=== PATIENT | male | born 1940 | race Caucasian/White ===

== ENCOUNTER 2018-03-15 05:55 | Day surgery (SDC) | payer MEDICARE ==
[~2018-03-15 05:55] MED LIST: MARCAINE 0.5% INFILTRATI ONE
[2018-03-15] MEDS ORDERED: ANCEF/STERILE WATER 2 GM/20 ML 2 GM/20 ML SYRINGE IV NR (06:00)
[2018-03-15] MEDS ORDERED: NACL 0.9% 1000 ML 1,000 ML IV SCH (06:00)
[2018-03-15] MEDS ORDERED: VERSED IV NR (06:00)
[2018-03-15] MEDS ORDERED: XYLOCAINE 1%/ EPI 1:100,000 INFILTRATI ONE (07:02)
[2018-03-15] MEDS ORDERED: NACL 0.9% 250ML 250 ML ONE ×2 (07:02→07:56)
[2018-03-15] MEDS ORDERED: MARCAINE 0.5% INFILTRATI ONE ×2 (07:02→09:59)
[2018-03-15] MEDS ORDERED: HEPARIN 10,000 UNITS/10 ML ONE (07:02)
[2018-03-15 07:03] LABS: Hematocrit 31.9 % (35.5-45.6); Hemoglobin 10.9 gm/dl (11.8-15.2); Mean Corpuscular HGB Conc 34 % (32-34); Mean Corpuscular Hemoglobin 30 pg (28-32); Mean Corpuscular Volume 87 fl (84-94); Platelet Count 190 K/mm3 (140-440); Red Blood Count 3.68 M/mm3 (3.65-5.03); Red Cell Distribution Width 14.2 % (13.2-15.2)
[2018-03-15] MEDS ORDERED: SODIUM BICARBONATE ONE ×2 (07:03→10:43)
[2018-03-15] MEDS ORDERED: RIFADIN ONE (07:03)
[2018-03-15] MEDS ORDERED: NACL 0.9% 500 ML 0 ML ONE (07:03)
--- NOTE | 2018-03-15 07:13 | Anesthesia Day of Surgery ---
Anesthesia Day of Surgery - Day of Surgery Patient Examined: Yes Patient H&P Reviewed: Yes Patient is NPO: Yes
--- NOTE | 2018-03-15 07:13 | Anesthesia Consultation ---
Anesthesia Consult and Med Hx Date of service: 03/15/18 - Airway Anesthetic Teeth Evaluation: Dentures ROM Head & Neck: Adequate Mental/Hyoid Distance: Adequate Mallampati Class: Class III Intubation Access Assessment: Probably Good - Pulmonary Exam CTA: Yes - Cardiac Exam Cardiac Exam: RRR - Pre-Operative Health Status ASA Pre-Surgery Classification: ASA3 Proposed Anesthetic Plan: General - Pulmonary Hx Smoking: No - Cardiovascular System Hx Hypertension: Yes (took Coreg and clonidine today) - Central Nervous System Hx Psychiatric Problems: No - Gastrointestinal Hx Ulcer: No Hx Gastroesophageal Reflux Disease: No - Endocrine Hx Renal Disease: Yes - Hematic Hx Anemia: Yes - Other Systems Hx Alcohol Use: Yes (occas) Hx Substance Use: No Hx Cancer: Yes (colon cancer 2005)
[2018-03-15 07:15] LABS: Calcium 9.1 mg/dL (8.4-10.2)
[2018-03-15] MEDS ORDERED: ROBINUL IV NR (07:30)
[2018-03-15] MEDS ORDERED: PEPCID IV NR (07:30)
[2018-03-15] MEDS ORDERED: ZOFRAN IV PRN (07:30)
[2018-03-15] MEDS ORDERED: DIPRIVAN 10 MG/ML IV ONE (08:07)
[2018-03-15] MEDS ORDERED: SUBLIMAZE ONE (08:07)
[2018-03-15 08:16] LABS: Basophils % (Manual) 0 % (0.0-1.8); Total Cells Counted 100
[2018-03-15 08:17] LABS: RBC Morphology Normal
[2018-03-15] MEDS ORDERED: XYLOCAINE MPF 0.5% INFILTRATI ONE (09:10)
[2018-03-15] MEDS ORDERED: NEO SYNEPHRINE/NS Syringe(OR USE) IV ONE (09:10)
[2018-03-15] MEDS ORDERED: NEO SYNEPHRINE ONE (09:11)
[2018-03-15] MEDS ORDERED: NACL 0.9% 100 ML ONE (09:11)
[2018-03-15] MEDS ORDERED: ROBINUL ONE (09:11)
[2018-03-15] MEDS ORDERED: ZOFRAN ONE (09:11)
[2018-03-15] MEDS ORDERED: NACL 0.9% 500 ML IV ONE (09:12)
[2018-03-15] MEDS ORDERED: HEPARIN 10,000 UNITS/10 ML IV ONE (09:12)
--- NOTE | 2018-03-15 10:28 | Operative Report ---
Operative Report Operative Report: Date of procedure:03/15/2018 Pre-operative diagnosis: End-stage renal disease in need of hemodialysis access Post-operative diagnosis: Same Procedure name(s): Patient of left brachial artery to cephalic vein hemodialysis fistula Surgeon: Robert Haley MD Pharmacy Manager: None Anesthesia: Gen. EBL: Minimal Specimen(s): None Complications: None Findings: Good caliber/quality cephalic vein and brachial artery. Excellent thrill and bruit and fistula post anastomosis. Adequate perfusion to the left hand postanastomosis. Procedure: With the left arm extended the entire extremity was then prepped and draped using standard sterile technique. . I then made a transverse incision overlying the confluence of the median cephalic and the basilic veins in the volar aspect of proximal forearm and carried into the subcutaneous tissue. The [median] cephalic vein was identified and mobilized. Multiple side branches were ligated but the vessel was considered adequate for fistula creation. Once the vein was completely mobilized and marked for rotation I then mobilized distal brachial artery with Vesseloops. The vessel was then controlled[ using a combination of vessel loops and] DeBakey clamps and a longitudinal arteriotomy was then made over the extreme distal brachial artery. The distal end of the transected vein was then opened and an end-to-side anastomosis was then created between the 2 vessels using 6-0 Prolene suture in running technique. Prior to completion of the suture line antegrade and retrograde flushing was performed. The suture line was then completed and flow was reestablished initially into the fistula and subsequently released of the distal forearm vessels. A strong Doppler signal was noted over both the radial and ulnar arteries which was unchanged from preop Soft thrill and bruit was felt in the fistula. Hemostasis was obtained using Surgicel. The incision was then blocked with Marcaine 0.5% plain and then closed in layers using 3-0 Vicryl subcutaneous 4-0 Monocryl subcuticular. Skin was then sealed with Dermabond and the patient was then returned to the supine position and then to the recovery in stable condition having tolerated the procedure well. Sponge and needle counts were correct..
--- NOTE | 2018-03-15 10:36 | Short Stay Summary ---
Short Stay Documentation Narrative H&P: Admitted to the operative suite for outpatient creation of an AV fistula and his left arm - History H&P: obtained from office - Allergies and Medications Current Medications: Allergies No Known Allergies Allergy (Unverified 03/14/18 11:06) Home Medications Medication Instructions Recorded Confirmed Last Taken Type Calcitriol [Rocaltrol] 0.25 mg PO DAILY 03/14/18 03/15/18 03/14/18 09:00 History Carvedilol [Coreg] 12.5 mg PO BID 03/14/18 03/15/18 03/14/18 04:00 History Doxazosin [Cardura] 2 mg PO BID 03/14/18 03/15/18 03/15/18 04:00 History Ferrous Sulfate [Feosol 325 MG tab] 1 tab PO DAILY 03/14/18 03/15/18 03/14/18 09 :00 History Sodium Bicarbonate 2 tab PO BID 03/14/18 03/14/18 Unknown History Tamsulosin [Flomax] 0.4 mg PO BID 03/14/18 03/15/18 03/14/18 09:00 History amLODIPine [Norvasc] 10 mg PO DAILY 03/14/18 03/15/18 03/14/18 04:00 History cloNIDine [Catapres] 0.01 mg PO BID 03/14/18 03/15/18 03/14/18 04:00 History Active Medications Famotidine (Pepcid) 20 mg IV PREOP NR Stop: 03/15/18 12:00 Last Admin: 03/15/18 07:31 Dose: 20 mg Glycopyrrolate (Robinul) 0.1 mg IV PREOP NR Stop: 03/15/18 12:00 Last Admin: 03/15/18 07:57 Dose: 0.1 mg Cefazolin Sodium (Ancef/Sterile Water 2 Gm/20 Ml) 2 gm in 20 mls @ 80 mls/hr IV PREOP NR; Protocol Stop: 03/15/18 23:00 Sodium Chloride (Nacl 0.9% 1000 Ml) 1,000 mls @ 42 mls/hr IV DIRECT VIPIN Last Admin: 03/15/18 07:00 Dose: 42 mls/hr Midazolam HCl (Versed) 2 mg IV PREOP NR Stop: 03/15/18 23:59 Last Admin: 03/15/18 07:15 Dose: 2 mg Ondansetron HCl (Zofran) 4 mg IV ONCE PRN PRN Reason: Nausea And Vomiting Stop: 03/15/18 12:00 - Brief post op/procedure progress note Date of procedure: 03/15/18 Procedure: Pre-operative diagnosis: End-stage renal disease in need of hemodialysis access Post-operative diagnosis: Same Procedure name(s): Patient of left brachial artery to cephalic vein hemodialysis fistula Surgeon: Robert Haley MD Toll Line Mechanic: None Anesthesia: Gen. EBL: Minimal Specimen(s): None Complications: None Findings: Good caliber/quality cephalic vein and brachial artery. Excellent thrill and bruit and fistula post anastomosis. Adequate perfusion to the left hand postanastomosis. Procedure: With the left arm extended the entire extremity was then prepped and draped using standard sterile technique. . I then made a transverse incision overlying the confluence of the median cephalic and the basilic veins in the volar aspect of proximal forearm and carried into the subcutaneous tissue. The [median] cephalic vein was identified and mobilized. Multiple side branches were ligated but the vessel was considered adequate for fistula creation. Once the vein was completely mobilized and marked for rotation I then mobilized distal brachial artery with Vesseloops. The vessel was then controlled[ using a combination of vessel loops and] DeBakey clamps and a longitudinal arteriotomy was then made over the extreme distal brachial artery. The distal end of the transected vein was then opened and an end-to-side anastomosis was then created between the 2 vessels using 6-0 Prolene suture in running technique. Prior to completion of the suture line antegrade and retrograde flushing was performed. The suture line was then completed and flow was reestablished initially into the fistula and subsequently released of the distal forearm vessels. A strong Doppler signal was noted over both the radial and ulnar arteries which was unchanged from preop Soft thrill and bruit was felt in the fistula. Hemostasis was obtained using Surgicel. The incision was then blocked with Marcaine 0.5% plain and then closed in layers using 3-0 Vicryl subcutaneous 4-0 Monocryl subcuticular. Skin was then sealed with Dermabond and the patient was then returned to the supine position and then to the recovery in stable condition having tolerated the procedure well. Sponge and needle counts were correct.. - Hospital course Hospital course: Benign - Disposition Condition at discharge: Stable Disposition: DC- TO HOME OR SELFCARE - Discharge Diagnoses (1) End stage chronic kidney disease Status: Chronic (2) Hypertensive chronic kidney disease with stage 1 through stage 4 chronic kidney disease, or unspecified chronic kidney disease Status: Chronic Short Stay Discharge Plan Activity: advance as tolerated Weight Bearing Status: Weight Bear as Tolerated Diet: renal Wound: keep clean and dry Special Instructions: no heavy lifting Follow up with: HARMONY GUTHRIE MD [Primary Care Provider] - 7 Days GLENNA ALEGRIA MD [Staff Physician] - 7 Days Prescriptions: HYDROcodone/ACETAMINOPHEN [[place] 5-325 Tablet] 1 each PO Q4HR PRN #20 tablet PRN Reason: Pain
--- NOTE | 2018-03-15 10:49 | Post Anesthesia Evaluation ---
- Post Anesthesia Evaluation Patient Participated: Yes Airway Patent: Yes Stable Respiratory Function: Yes Nausea/Vomiting: No Temp > 96.8F: Yes Pain Manageable: Yes Adequeate Hydration: Yes Anesthesia Complications: No
[2018-03-15] MEDS ORDERED: DILAUDID IV PRN (11:00)
[2018-03-15 11:59] VITALS: BP 146/83
== END 2018-03-15 11:55 | disposition home or self-care (01) ==
LOC: OR 05:55
PROVIDERS: ATTEND Surgery Vascular Surgery
DX: I12.0 Hypertensive chronic kidney disease with stage 5 chronic kidney disease or end stage renal disease (principal); N18.6 End stage renal disease; Z85.038 Personal history of other malignant neoplasm of large intestine
CPT/HCPCS: 36415; 36821; 80048; 85007; 85025; J0690; J1644; J2250; J2370; J2405; J2704; J3010; J7030; J7040; J7050; J3490

== ENCOUNTER 2020-11-13 07:12 | Emergency (ER) | payer MEDICARE ==
[2020-11-13 07:58] VITALS: BP 103/56
--- NOTE | 2020-11-13 10:15 | Emergency Department Report ---
- General Chief complaint: Weakness Stated complaint: HYPOTENSIVE,DIALYSIS Time Seen by Provider: 11/13/20 09:50 Source: patient Mode of arrival: Ambulatory Limitations: No Limitations - History of Present Illness Initial comments: Chief complaint: "I have had the stomach flu since . I Almost passed out at dialysis." HPI this is a 80-year-old male with history of end-stage renal disease on hemodialysis Tuesday, hypertension who presents with near synco pe and diarrhea. Since the day after , patient has had copious amount of diarrhea. He feels as if he has lost too much fluid. He denies any abdominal pain. He had more diarrhea on today. No recent use of antibiotics. Because hemodialysis session occurred on Tuesday. Today when standing on the scale at dialysis, he just went down to the floor without complete loss of consciousness. Patient feels comfortable seated at rest. MD Complaint: generalized weakness -: Gradual Location: generalized Severity: mild Consistency: constant Improves with: none Worsens with: none Context: recent illness (Diarrhea for the past 5 days) Associated Symptoms: other (Diarrhea) - Related Data Home Medications Medication Instructions Recorded Confirmed Last Taken Doxazosin [Cardura] 2 mg PO BID 03/14/18 03/15/18 03/15/18 04:00 Ferrous Sulfate [Feosol 325 MG tab] 1 tab PO DAILY 03/14/18 03/15/18 03/14/18 09:00 Sodium Bicarbonate 2 tab PO BID 03/14/18 03/14/18 Unknown Tamsulosin [Flomax] 0.4 mg PO BID 03/14/18 03/15/18 03/14/18 09:00 amLODIPine 10 mg PO DAILY 03/14/18 03/15/18 03/14/18 04:00 calcitrioL [Rocaltrol] 0.25 mg PO DAILY 03/14/18 03/15/18 03/14/18 09:00 carvediloL [Coreg] 12.5 mg PO BID 03/14/18 03/15/18 03/14/18 04:00 cloNIDine [Catapres] 0.01 mg PO BID 03/14/18 03/15/18 03/14/18 04:00 Previous Rx's Medication Instructions Recorded Last Taken Type HYDROcodone/ACETAMINOPHEN [[place] 1 each PO Q4HR PRN #20 tablet 03/15/18 Unknown Rx 5-325 Tablet] Loperamide [Imodium] 2 mg PO QID 2 Days #8 capsule 11/13/20 Unknown Rx Allergies Allergy/AdvReac Type Severity Reaction Status Date / Time No Known Allergies Allergy Verified 11/13/20 07:55 ED Review of Systems ROS: Stated complaint: HYPOTENSIVE,DIALYSIS Other details as noted in HPI Comment: All other systems reviewed and negative Constitutional: malaise ED Past Medical Hx - Past Medical History Hx Hypertension: Yes (took Coreg and clonidine today) Hx Renal Disease: Yes - Social History Smoking Status: Never Smoker - Medications Home Medications: Home Medications Medication Instructions Recorded Confirmed Last Taken Type Doxazosin [Cardura] 2 mg PO BID 03/14/18 03/15/18 03/15/18 04:00 History Ferrous Sulfate [Feosol 325 MG tab] 1 tab PO DAILY 03/14/18 03/15/18 03/14/18 09:00 History Sodium Bicarbonate 2 tab PO BID 03/14/18 03/14/18 Unknown History Tamsulosin [Flomax] 0.4 mg PO BID 03/14/18 03/15/18 03/14/18 09:00 History amLODIPine 10 mg PO DAILY 03/14/18 03/15/18 03/14/18 04:00 History calcitrioL [Rocaltrol] 0.25 mg PO DAILY 03/14/18 03/15/18 03/14/18 09:00 History carvediloL [Coreg] 12.5 mg PO BID 03/14/18 03/15/18 03/14/18 04:00 History cloNIDine [Catapres] 0.01 mg PO BID 03/14/18 03/15/18 03/14/18 04:00 History HYDROcodone/ACETAMINOPHEN [[place] 1 each PO Q4HR PRN #20 tablet 03/15/18 Unknown Rx 5-325 Tablet] Loperamide [Imodium] 2 mg PO QID 2 Days #8 capsule 11/13/20 Unknown Rx ED Physical Exam - General Limitations: No Limitations ED Course Vital Signs 11/13/20 07:56 Temperature 97.8 F Pulse Rate 89 Respiratory 18 Rate Blood Pressure 103/56 O2 Sat by Pulse 99 Oximetry ED Medical Decision Making - Lab Data Result diagrams: 11/13/20 10:14 12/31/20 10:14 - Medical Decision Making This is a 80-year-old male with end-stage renal disease who has had diarrhea for the past 5 days. He presents with orthostasis. Chemistry reveals dehydration with hyponatremia hypochloremia due to GI losses. Patient was treated with IV fluid therapy. He felt much improved. I prescribed Imodium he is discharged home he will receive dialysis on Tuesday. Critical care attestation.: If time is entered above; I have spent that time in minutes in the direct care of this critically ill patient, excluding procedure time. ED Disposition Clinical Impression: End stage chronic kidney disease, Dehydration, Orthostasis Disposition: DC- TO HOME OR SELFCARE Is pt being admited?: No Does the pt Need Aspirin: No Condition: Stable Instructions: Dehydration, Adult, [id number] Prescriptions: Loperamide [Imodium] 2 mg PO QID 2 Days #8 capsule
[2020-11-13 10:26] LABS: Hematocrit 31.6 % (35.5-45.6); Hemoglobin 10.7 gm/dl (11.8-15.2); Mean Corpuscular HGB Conc 34 % (32-34); Mean Corpuscular Volume 91 fl (84-94); Platelet Count 243 K/mm3 (140-440); Red Blood Count 3.47 M/mm3 (3.65-5.03); Red Cell Distribution Width 13.5 % (13.2-15.2)
[2020-11-13 10:46] LABS: Calcium 9.5 mg/dL (8.4-10.2)
[2020-11-13] MEDS ORDERED: SODIUM CHLORIDE 0.9% 500 ML 500 ML IV ONE ×2 (12:29→12:51)
[2020-11-13 12:58] LABS: Band Neutrophils # (Manual) 0.5 K/mm3; Myelocytes # (Manual) 0.1 K/mm3; Total Cells Counted 100
[2020-11-13 12:59] LABS: Platelet Estimate Consistent w Auto; RBC Morphology Normal
== END 2020-11-14 07:00 | disposition home or self-care (01) ==
LOC: ED 07:12
DX: I12.0 Hypertensive chronic kidney disease with stage 5 chronic kidney disease or end stage renal disease (principal); N18.6 End stage renal disease; I95.1 Orthostatic hypotension; E86.0 Dehydration; Z79.899 Other long term (current) drug therapy
CPT/HCPCS: 36415; 80048; 85007; 85025; 93005

== ENCOUNTER 2021-01-26 11:51 | Emergency (ER) | payer MEDICARE ==
[2021-01-26] MEDS ORDERED: SODIUM CHLORIDE 0.9% 1000 ML 1,000 ML IV ONE (12:20)
--- NOTE | 2021-01-26 12:22 | Event Note ---
ED Screening Note Date of service: 01/26/21 Time: 12:21 ED Screening Note: pt presents with multiple episodes of diarrhea for the past couple weeks Has medical history significant for colorectal cancer, ESTD on dialysis and HTN This initial assessment/diagnostic orders/clinical plan/treatment(s) is/are subject to change based on patients health status, clinical progression and re- assessment by fellow clinical providers in the ED. Further treatment and workup at subsequent clinical providers discretion. Patient/guardian urged not to elope from the ED as their condition may be serious if not clinically assessed and managed. Initial orders include: Abdominal pain order set
[2021-01-26] MEDS ORDERED: DIPHENOXYLATE/ATROPINE TAB PO STA (12:34)
--- NOTE | 2021-01-26 12:41 | Emergency Department Report ---
ED N/V/D HPI - General Chief complaint: Nausea/Vomiting/Diarrhea Stated complaint: BOWELS ARE LOOSE Time Seen by Provider: 01/26/21 12:25 Source: patient Mode of arrival: Ambulatory Limitations: No Limitations - History of Present Illness Initial comments: Chief complaint: "When you have colon cancer, I just get scared." HPI: This is a 80-year-old male with history of hypertension, end-stage renal disease on hemodialysis, colon cancer status post bowel resection 2005 who presents with diarrhea for the last 3 weeks. He received first dose COVID-19 vaccine on January 06. The next day on the he began to have diarrhea. He has watery loose stools. Last episode of diarrhea occurred last night. He states that it is just "pure water". He has stayed hydrated. He states that "I feel good." He denies pain. Denies fever. He decided to skip dialysis today in order to be evaluated in the emergency department. He normally is dialyzed Tuesday at 11:30 AM. MD complaint: diarrhea -: Gradual Description of Diarrhea: water Associated Abdominal Pain: No Severity: mild Consistency: intermittent Improves with: none Worsens with: none Context: other Associated Symptoms: other (Diarrhea) - Related Data Home Medications Medication Instructions Recorded Confirmed Last Taken Doxazosin [Cardura] 2 mg PO BID 03/14/18 03/15/18 03/15/18 04:00 Ferrous Sulfate [Feosol 325 MG tab] 1 tab PO DAILY 03/14/18 03/15/18 03/14/18 09:00 Sodium Bicarbonate 2 tab PO BID 03/14/18 03/14/18 Unknown Tamsulosin [Flomax] 0.4 mg PO BID 03/14/18 03/15/18 03/14/18 09:00 amLODIPine 10 mg PO DAILY 03/14/18 03/15/18 03/14/18 04:00 calcitrioL [Rocaltrol] 0.25 mg PO DAILY 03/14/18 03/15/18 03/14/18 09:00 carvediloL [Coreg] 12.5 mg PO BID 03/14/18 03/15/18 03/14/18 04:00 cloNIDine [Catapres] 0.01 mg PO BID 03/14/18 03/15/18 03/14/18 04:00 Previous Rx's Medication Instructions Recorded Last Taken Type HYDROcodone/ACETAMINOPHEN [[place] 1 each PO Q4HR PRN #20 tablet 03/15/18 Unknown Rx 5-325 Tablet] Loperamide [Imodium] 2 mg PO QID #8 capsule 11/13/20 Unknown Rx Diphenoxylate/Atropine [Lomotil] 2 tab PO TID 2 Days #12 tablet 01/26/21 Unknown Rx Allergies Allergy/AdvReac Type Severity Reaction Status Date / Time No Known Allergies Allergy Verified 11/13/20 07:55 ED Review of Systems ROS: Stated complaint: BOWELS ARE LOOSE Other details as noted in HPI ED Past Medical Hx - Past Medical History Previous Medical History?: Yes Hx Hypertension: Yes (took Coreg and clonidine today) Hx Renal Disease: Yes (dialysis M, W, F) Hx of Cancer: Yes (colorectal cancer) - Surgical History Past Surgical History?: Yes Additional Surgical History: colorectal surgery. graft placement to left arm - Social History Smoking Status: Never Smoker Substance Use Type: None - Medications Home Medications: Home Medications Medication Instructions Recorded Confirmed Last Taken Type Doxazosin [Cardura] 2 mg PO BID 03/14/18 03/15/18 03/15/18 04:00 History Ferrous Sulfate [Feosol 325 MG tab] 1 tab PO DAILY 03/14/18 03/15/18 03/14/18 09:00 History Sodium Bicarbonate 2 tab PO BID 03/14/18 03/14/18 Unknown History Tamsulosin [Flomax] 0.4 mg PO BID 03/14/18 03/15/18 03/14/18 09:00 History amLODIPine 10 mg PO DAILY 03/14/18 03/15/18 03/14/18 04:00 History calcitrioL [Rocaltrol] 0.25 mg PO DAILY 03/14/18 03/15/18 03/14/18 09:00 History carvediloL [Coreg] 12.5 mg PO BID 03/14/18 03/15/18 03/14/18 04:00 History cloNIDine [Catapres] 0.01 mg PO BID 03/14/18 03/15/18 03/14/18 04:00 History HYDROcodone/ACETAMINOPHEN [[place] 1 each PO Q4HR PRN #20 tablet 03/15/18 Unknown Rx 5-325 Tablet] Loperamide [Imodium] 2 mg PO QID #8 capsule 11/13/20 Unknown Rx Diphenoxylate/Atropine [Lomotil] 2 tab PO TID 2 Days #12 tablet 01/26/21 Unknown Rx ED Physical Exam - General Limitations: No Limitations General appearance: alert, in no apparent distress - Head Head exam: Present: atraumatic, normocephalic - Eye Eye exam: Present: normal appearance - ENT ENT exam: Present: mucous membranes moist - Neck Neck exam: Present: normal inspection, full ROM - Respiratory Respiratory exam: Present: normal lung sounds bilaterally. Absent: respiratory distress, wheezes, rales, rhonchi - Cardiovascular Cardiovascular Exam: Present: regular rate, normal rhythm, normal heart sounds. Absent: systolic murmur, diastolic murmur, rubs, gallop - GI/Abdominal GI/Abdominal exam: Present: soft, normal bowel sounds. Absent: distended, tenderness, guarding, rebound - Rectal Rectal exam: Present: deferred - Extremities Exam Extremities exam: Present: normal inspection - Neurological Exam Neurological exam: Present: alert, oriented X3, normal gait - Psychiatric Psychiatric exam: Present: normal affect, normal mood - Skin Skin exam: Present: warm, dry, intact, normal color. Absent: rash ED Course Vital Signs 01/26/21 12:12 Temperature 98.8 F Pulse Rate 120 H Respiratory 20 Rate Blood Pressure 151/88 O2 Sat by Pulse 98 Oximetry ED Medical Decision Making - Lab Data Result diagrams: 01/26/21 12:24 01/26/21 12:24 - Medical Decision Making 3 weeks diarrhea without any other symptoms. Patient has 1 loose stool per day. He appears well-hydrated. He denies pain or decreased appetite. Diarrhea may be adverse effect from vaccine. I prescribed Lomotil. Patient did have tachycardia in triage. He was not orthostatic. However he stated that he did not take his pill for "heart rate". He showed me carvedilol 12.5 mg pill bottle. I do not suspect sepsis or dehydration. CBC chemistry within acceptable limits. Electrolytes within normal limits. Patient does not require emergent dialysis. Patient will call his home clinic for dialysis appointment tomorrow. Critical care attestation.: If time is entered above; I have spent that time in minutes in the direct care of this critically ill patient, excluding procedure time. ED Disposition Clinical Impression: Diarrhea, End stage chronic kidney disease Disposition: DC-01 TO HOME OR SELFCARE Is pt being admited?: No Does the pt Need Aspirin: No Condition: Stable Instructions: Diarrhea, Adult, [id number] Prescriptions: Diphenoxylate/Atropine [Lomotil] 2 tab PO TID 2 Days #12 tablet Referrals: PRIMARY CARE, [Primary Care Provider] - 3-5 Days
[2021-01-26 12:47] LABS: Basophils # (Auto) 0.1 K/mm3 (0.0-0.1); Eosinophils # (Auto) 0.1 K/mm3 (0.0-0.4); Eosinophils % (Auto) 1.8 % (0.0-4.3); Hematocrit 36.4 % (35.5-45.6); Hemoglobin 12.3 gm/dl (11.8-15.2); Lymphocytes # (Auto) 0.4 K/mm3 (1.2-5.4); Lymphocytes % (Auto) 6.6 % (13.4-35.0); Mean Corpuscular HGB Conc 34 % (32-34); Mean Corpuscular Volume 90 fl (84-94); Monocytes # (Auto) 0.7 K/mm3 (0.0-0.8); Monocytes % (Auto) 12.7 % (0.0-7.3); Platelet Count 253 K/mm3 (140-440); Red Blood Count 4.03 M/mm3 (3.65-5.03); Red Cell Distribution Width 13.4 % (13.2-15.2)
[2021-01-26 13:03] LABS: Calcium 9.2 mg/dL (8.4-10.2)
[2021-01-26 13:48] VITALS: BP 148/89
== END 2021-01-26 13:46 | disposition home or self-care (01) ==
LOC: ED 11:51
DX: R19.7 Diarrhea, unspecified (principal); I12.0 Hypertensive chronic kidney disease with stage 5 chronic kidney disease or end stage renal disease; N18.6 End stage renal disease; Z99.2 Dependence on renal dialysis; Z98.890 Other specified postprocedural states; Z85.048 Personal history of other malignant neoplasm of rectum, rectosigmoid junction, and anus; Z79.899 Other long term (current) drug therapy
CPT/HCPCS: 36415; 80053; 83690; 85025

== ENCOUNTER 2021-03-10 19:25 | Emergency (ER) | payer MEDICARE ==
[2021-03-10] MEDS ORDERED: SODIUM CHLORIDE 0.9% 1000 ML IV SOLN IV ONE (20:15)
--- NOTE | 2021-03-10 20:15 | Event Note ---
ED Screening Note ED Screening Note: abd pain diarrhea nausea states he goes to a GI doctor states he has a colonscopy scheduled states he last had a coloscopy two years ago hx of colon cancer no blood in stool no recent abx fever, tachycardia This initial assessment/diagnostic orders/clinical plan/treatment(s) is/are subject to change based on patients health status, clinical progression and re- assessment by fellow clinical providers in the ED. Further treatment and workup at subsequent clinical providers discretion. Patient/guardian urged not to elope from the ED as their condition may be serious if not clinically assessed and managed. Initial orders include: code sepsis
[2021-03-10 20:43] LABS: Hematocrit 37.1 % (35.5-45.6); Hemoglobin 12.5 gm/dl (11.8-15.2); Mean Corpuscular HGB Conc 34 % (32-34); Mean Corpuscular Volume 89 fl (84-94); Platelet Count 288 K/mm3 (140-440); Red Blood Count 4.18 M/mm3 (3.65-5.03); Red Cell Distribution Width 13.3 % (13.2-15.2)
[2021-03-10 21:03] LABS: Albumin 3.7 g/dL (3.9-5); Blood Urea Nitrogen 39 mg/dL (9-20); Calcium 9.3 mg/dL (8.4-10.2); Hemolysis Index 3
[2021-03-10 21:04] LABS: Alanine Aminotransferase < 5 units/L (7-56); BUN/Creatinine Ratio 7
[2021-03-10 22:07] LABS: Band Neutrophils # (Manual) 1.8 K/mm3; Total Cells Counted 100
[2021-03-10 22:08] LABS: Giant Platelets Rare; Platelet Estimate Consistent w Auto
--- NOTE | 2021-03-11 04:07 | Emergency Department Report ---
ED General Adult HPI - General Chief complaint: Nausea/Vomiting/Diarrhea Stated complaint: DIZZY/DIARRHEA PUI?: No Time Seen by Provider: 03/10/21 20:12 Source: patient, RN notes reviewed, old records reviewed Mode of arrival: Ambulatory Limitations: No Limitations - History of Present Illness Initial comments: The patient was evaluated in the emergency department for symptoms described in the history of present illness. He/she was evaluated in the context of the global COVID-19 pandemic, which necessitated consideration that the patient might be at risk for infection with the virus that causes COVID-19. Institutional protocols and algorithms that pertain to the evaluation of patients at risk for COVID-19 are in a state of rapid change based on information released by regulatory bodies including the CDC and federal and state organizations. These policies and algorithms were followed during the patient's care in the emergency department. Please note that these policies, procedures and recommendations changed on a rapid basis. Gastroenterology: [facility]; Dr. Sood Nephrology: Dr. Pandya Past medical history: Colorectal cancer, not currently on chemotherapy or radiation therapy, end-stage renal disease on hemodialysis, Tuesday, Tuesday, Tuesday, hypertension, BPH. This is a pleasant 80-year-old gentleman. He is not known to myself previously. He presents to the ER today with a complaint of acute onset diarrhea. Patient states that over the past few months, he has been experiencing profuse diarrhea, and has been evaluated extensively by gastroenterology, Dr. Sood. He reports he has had outpatient stool studies which were essentially unremarkable, he reports no recent antibiotic use, and he reports that he recently started taking cholestyramine, which greatly improved his symptoms. This was prescribed by his [employer]. He is supposed to follow-up with his utility [employer] in 2 days for evaluation and possible colonoscopy. The patient states he was in his usual state of health yesterday, March 10, when he developed sudden onset of painless brown watery diarrhea. Denies headache, neck pain, chest pain, abdominal pain, shortness of breath, dysuria. He reports that he feels slightly dizzy and lightheaded. He reports no recent antibiotic use. Since he has been here in the emergency room, he feels like the frequency of bowel movements which he is experiencing has decreased. -: Sudden Consistency: intermittent Improves with: none Worsens with: none - Related Data Home Medications Medication Instructions Recorded Confirmed Last Taken Doxazosin [Cardura] 2 mg PO BID 03/14/18 03/15/18 03/15/18 04:00 Ferrous Sulfate [Feosol 325 MG tab] 1 tab PO DAILY 03/14/18 03/15/18 03/14/18 09:00 Sodium Bicarbonate 2 tab PO BID 03/14/18 03/14/18 Unknown Tamsulosin [Flomax] 0.4 mg PO BID 03/14/18 03/15/18 03/14/18 09:00 amLODIPine 10 mg PO DAILY 03/14/18 03/15/18 03/14/18 04:00 calcitrioL [Rocaltrol] 0.25 mg PO DAILY 03/14/18 03/15/18 03/14/18 09:00 carvediloL [Coreg] 12.5 mg PO BID 03/14/18 03/15/18 03/14/18 04:00 cloNIDine [Catapres] 0.01 mg PO BID 03/14/18 03/15/18 03/14/18 04:00 Previous Rx's Medication Instructions Recorded Last Taken Type HYDROcodone/ACETAMINOPHEN [[place] 1 each PO Q4HR PRN #20 tablet 03/15/18 Unknown Rx 5-325 Tablet] Loperamide [Imodium] 2 mg PO QID #8 capsule 11/13/20 Unknown Rx Diphenoxylate/Atropine [Lomotil] 2 tab PO TID 2 Days #12 tablet 01/26/21 Unknown Rx Allergies Allergy/AdvReac Type Severity Reaction Status Date / Time No Known Allergies Allergy Verified 11/13/20 07:55 ED Review of Systems ROS: Stated complaint: DIZZY/DIARRHEA Other details as noted in HPI Constitutional: fever, malaise, weakness Eyes: denies: eye discharge ENT: denies: epistaxis Respiratory: denies: cough Cardiovascular: denies: chest pain Gastrointestinal: diarrhea. denies: abdominal pain, nausea, vomiting Genitourinary: denies: dysuria Neurological: weakness Hematological/Lymphatic: denies: easy bleeding ED Past Medical Hx - Past Medical History Hx Hypertension: Yes (took Coreg and clonidine today) Hx Renal Disease: Yes (dialysis M, W, F) Hx of Cancer: Yes (colon) - Surgical History Additional Surgical History: colorectal surgery. graft placement to left arm - Social History Smoking Status: Never Smoker Substance Use Type: None - Medications Home Medications: Home Medications Medication Instructions Recorded Confirmed Last Taken Type Doxazosin [Cardura] 2 mg PO BID 03/14/18 03/15/18 03/15/18 04:00 History Ferrous Sulfate [Feosol 325 MG tab] 1 tab PO DAILY 03/14/18 03/15/18 03/14/18 09:00 History Sodium Bicarbonate 2 tab PO BID 03/14/18 03/14/18 Unknown History Tamsulosin [Flomax] 0.4 mg PO BID 03/14/18 03/15/18 03/14/18 09:00 History amLODIPine 10 mg PO DAILY 03/14/18 03/15/18 03/14/18 04:00 History calcitrioL [Rocaltrol] 0.25 mg PO DAILY 03/14/18 03/15/18 03/14/18 09:00 History carvediloL [Coreg] 12.5 mg PO BID 03/14/18 03/15/18 03/14/18 04:00 History cloNIDine [Catapres] 0.01 mg PO BID 03/14/18 03/15/18 03/14/18 04:00 History HYDROcodone/ACETAMINOPHEN [[place] 1 each PO Q4HR PRN #20 tablet 03/15/18 Unknown Rx 5-325 Tablet] Loperamide [Imodium] 2 mg PO QID #8 capsule 11/13/20 Unknown Rx Diphenoxylate/Atropine [Lomotil] 2 tab PO TID 2 Days #12 tablet 01/26/21 Unknown Rx ED Physical Exam - General Limitations: No Limitations General appearance: alert, anxious - Head Head exam: Present: atraumatic, normocephalic - Eye Eye exam: Present: normal appearance, EOMI. Absent: nystagmus - ENT ENT exam: Present: normal exam, normal orophraynx, mucous membranes moist, normal external ear exam - Neck Neck exam: Present: normal inspection, full ROM. Absent: tenderness, meningismus - Respiratory Respiratory exam: Present: other (Lungs not auscultated secondary to lack of disposable stethoscope). Absent: respiratory distress - Cardiovascular Cardiovascular Exam: Present: other (Cardiac auscultation not performed secondary to lack of disposable stethoscope) - GI/Abdominal GI/Abdominal exam: Present: soft. Absent: distended, tenderness, guarding, rebound, rigid, pulsatile mass - Rectal Rectal exam: Present: deferred - Extremities Exam Extremities exam: Present: normal inspection (Left upper extremity fistula without redness, pus or streaking. Appropriate thrill was appreciated.), full ROM, other (2+ pulses noted in the bilateral upper and lower extremities. There is no palpable cord. negative Homans sign. Muscular compartments are soft. The pelvis is stable.). Absent: calf tenderness - Back Exam Back exam: Present: normal inspection. Absent: tenderness, CVA tenderness (R), CVA tenderness (L), paraspinal tenderness, vertebral tenderness - Neurological Exam Neurological exam: Present: alert, other (No facial droop. Tongue midline. Extraocular movements intact bilaterally. Facial sensation intact to light touch in V1, V2, V3 distribution bilaterally. 5 and a 5 strength in 4 extremities. Sensation intact to light touch in 4 extremities.). Absent: motor sensory deficit - Psychiatric Psychiatric exam: Present: normal affect, normal mood - Skin Skin exam: Present: warm, dry, intact, normal color. Absent: rash ED Course Vital Signs 03/10/21 03/11/21 03/11/21 19:36 04:30 04:46 Temperature 100.2 F H Pulse Rate 125 H 107 H 106 H Respiratory 18 22 18 Rate Blood Pressure 158/75 153/70 153/70 O2 Sat by Pulse 95 92 98 Oximetry 03/11/21 03/11/21 03/11/21 05:00 05:08 05:16 Temperature Pulse Rate 107 H 100 H Respiratory 16 16 21 Rate Blood Pressure 153/70 156/81 O2 Sat by Pulse 91 98 Oximetry 03/11/21 03/11/21 03/11/21 05:17 05:18 05:30 Temperature 98.4 F Pulse Rate 100 H Respiratory 16 22 Rate Blood Pressure 147/81 O2 Sat by Pulse 100 Oximetry - Reevaluation(s) Reevaluation #1: 03/11/21 04:20 Differential diagnosis, including but not limited to: Enteritis, viral syndrome, dehydration, COVID-19 Assessment and plan: 80-year-old gentleman with low-grade temperature, diarrhea, who reports being cholestyramine for the past few weeks with improvement in symptoms, no recent antibiotic use, supposed to follow-up with his utility [employer] in a few days, with improving diarrhea. Low-grade tem perature, but still tachycardic. Laboratory studies otherwise appear to be at baseline. Patient does not appear to be in any acute respiratory distress at this time. Place patient on monitor, start IV fluids, start acetaminophen, obtain x-ray of the chest, and reassess. 03/11/21 04:22 We will also obtain EKG. Patient has no leukocytosis, soft benign abdomen, has not taken antibiotics recently, do not suspect C. difficile at this time. Reevaluation #2: 03/11/21 04:55 Tachycardia improving, heart rate 105 to 107 bpm. X-ray of the chest is clear at this time. Additional history obtained. Patient states he received complete Covid vaccination, both shots. He denies Covid exposure. He has not had any diarrhea since I last spoke to him. He states that he feels generally weak, and nursing team informed him that he does walk with an unsteady gait. The patient feels weak from being in his wheelchair "for a long time" while in the waiting room, and also feels "dehydrated." He will be given IV fluids, and then trial of ambulation. Reevaluation #3: 03/11/21 05:11 Feeling improved. Ambulatory with a steady gait. Tachycardia improving. Reevaluation #4: 03/11/21 05:26 Final reassessment. Feels much improved. Tachycardia resolved. Endorses readiness for discharge. He will follow-up for hemodialysis tomorrow. He will follow-up with his utility [employer] on Tuesday. No additional diarrhea. Kelsey ent smiling in good spirits, able to ambulate with a steady gait. States significant other will drive him home. ED Medical Decision Making - Lab Data Result diagrams: 03/10/21 20:19 03/10/21 20:19 Vital Signs 03/10/21 19:36 Temperature 100.2 F H Pulse Rate 125 H Respiratory 18 Rate Blood Pressure 158/75 O2 Sat by Pulse 95 Oximetry Lab Results 03/10/21 03/10/21 03/10/21 Range/Units 20:19 20:19 20:19 WBC 5.1 (4.5-11.0) K/mm3 RBC 4.18 (3.65-5.03) M/mm3 Hgb 12.5 (11.8-15.2) gm/dl Hct 37.1 (35.5-45.6) % MCV 89 (84-94) fl MCH 30 (28-32) pg MCHC 34 (32-34) % RDW 13.3 (13.2-15.2) % Plt Count 288 (140-440) K/mm3 [place] % (Auto) Orthotic/Prosthetic Practitioner Add Manual Diff Complete Total Counted 100 Seg Neuts % (Manual) 24.0 L (40.0-70.0) % Band Neutrophils % 35.0 % Lymphocytes % (Manual) 17.0 (13.4-35.0) % Monocytes % (Manual) 24.0 H (0.0-7.3) % Nucleated RBC % Not Reportable Seg Neutrophils # Man 1.2 L (1.8-7.7) K/mm3 Band Neutrophils # 1.8 K/mm3 Lymphocytes # (Manual) 0.9 L (1.2-5.4) K/mm3 Abs React Lymphs (Man) 0.0 K/mm3 Monocytes # (Manual) 1.2 H (0.0-0.8) K/mm3 Eosinophils # (Manual) 0.0 (0.0-0.4) K/mm3 Basophils # (Manual) 0.0 (0.0-0.1) K/mm3 Metamyelocytes # 0.0 K/mm3 Myelocytes # 0.0 K/mm3 Promyelocytes # 0.0 K/mm3 Blast Cells # 0.0 K/mm3 WBC Morphology Not Reportable Hypersegmented Neuts Not Reportable Hyposegmented Neuts Not Reportable Hypogranular Neuts Not Reportable Smudge Cells Not Reportable Toxic Granulation Not Reportable Toxic Vacuolation Not Reportable Dohle Bodies Not Reportable Pelger-Huet Anomaly Not Reportable Markus Rods Not Reportable Platelet Estimate Consistent w auto Clumped Platelets Not Reportable Plt Clumps, EDTA Not Reportable Large Platelets Not Reportable Giant Platelets Rare Platelet Satelliting Not Reportable Plt Morphology Comment Not Reportable RBC Morphology Not Reportable Dimorphic RBCs Not Reportable Polychromasia Not Reportable Hypochromasia Not Reportable Poikilocytosis Not Reportable Anisocytosis Not Reportable Microcytosis Not Reportable Macrocytosis Not Reportable Spherocytes Not Reportable Pappenheimer Bodies Not Reportable Sickle Cells Not Reportable Target Cells Not Reportable Tear Drop Cells Not Reportable Ovalocytes Not Reportable Helmet Cells Not Reportable [place] Bodies Not Reportable [place] Rings Not Reportable Graeme Cells Not Reportable Bite Cells Not Reportable Crenated Cell Not Reportable Elliptocytes Not Reportable Acanthocytes (Spur) Not Reportable Rouleaux Not Reportable Hemoglobin C Crystals Not Reportable Schistocytes Not Reportable Malaria parasites Not Reportable Edis Bodies Not Reportable Hem Pathologist Commnt No Sodium 134 L (137-145) mmol/L Potassium 3.6 (3.6-5.0) mmol/L Chloride 93.9 L (98-107) mmol/L Carbon Dioxide 22 (22-30) mmol/L Anion Gap 22 mmol/L BUN 39 H (9-20) mg/dL Creatinine 6.0 H (0.8-1.3) mg/dL Estimated GFR 9 ml/min BUN/Creatinine Ratio 7 % Glucose 129 H (75-100) mg/dL Lactic Acid 0.90 (0.7-2.0) mmol/L Calcium 9.3 (8.4-10.2) mg/dL Total Bilirubin 0.60 (0.1-1.2) mg/dL AST 6 (5-40) units/L ALT < 5 L (7-56) units/L Alkaline Phosphatase 100 (35-129) units/L Total Protein 7.3 (6.3-8.2) g/dL Albumin 3.7 L (3.9-5) g/dL Albumin/Globulin Ratio 1.0 % 04/27/21 Range/Units 23:27 WBC (4.5-11.0) K/mm3 RBC (3.65-5.03) M/mm3 Hgb (11.8-15.2) gm/dl Hct (35.5-45.6) % MCV (84-94) fl MCH (28-32) pg MCHC (32-34) % RDW (13.2-15.2) % Plt Count (140-440) K/mm3 [place] % (Auto) Add Manual Diff Total Counted Seg Neuts % (Manual) (40.0-70.0) % Band Neutrophils % % Lymphocytes % (Manual) (13.4-35.0) % Monocytes % (Manual) (0.0-7.3) % Nucleated RBC % Seg Neutrophils # Man (1.8-7.7) K/mm3 Band Neutrophils # K/mm3 Lymphocytes # (Manual) (1.2-5.4) K/mm3 Abs React Lymphs (Man) K/mm3 Monocytes # (Manual) (0.0-0.8) K/mm3 Eosinophils # (Manual) (0.0-0.4) K/mm3 Basophils # (Manual) (0.0-0.1) K/mm3 Metamyelocytes # K/mm3 Myelocytes # K/mm3 Promyelocytes # K/mm3 Blast Cells # K/mm3 WBC Morphology Hypersegmented Neuts Hyposegmented Neuts Hypogranular Neuts Smudge Cells Toxic Granulation Toxic Vacuolation Dohle Bodies Pelger-Huet Anomaly Markus Rods Platelet Estimate Clumped Platelets Plt Clumps, EDTA Large Platelets Giant Platelets Platelet Satelliting Plt Morphology Comment RBC Morphology Dimorphic RBCs Polychromasia Hypochromasia Poikilocytosis Anisocytosis Microcytosis Macrocytosis Spherocytes Pappenheimer Bodies Sickle Cells Target Cells Tear Drop Cells Ovalocytes Helmet Cells [place] Bodies [place] Rings [place] Cells Bite Cells Crenated Cell Elliptocytes Acanthocytes (Spur) Rouleaux Hemoglobin C Crystals Schistocytes Malaria parasites Edis Bodies Hem Pathologist Commnt Sodium (137-145) mmol/L Potassium (3.6-5.0) mmol/L Chloride (98-107) mmol/L Carbon Dioxide (22-30) mmol/L Anion Gap mmol/L BUN (9-20) mg/dL Creatinine (0.8-1.3) mg/dL Estimated GFR ml/min BUN/Creatinine Ratio % Glucose (75-100) mg/dL Lactic Acid 1.10 (0.7-2.0) mmol/L Calcium (8.4-10.2) mg/dL Total Bilirubin (0.1-1.2) mg/dL AST (5-40) units/L ALT (7-56) units/L Alkaline Phosphatase (35-129) units/L Total Protein (6.3-8.2) g/dL Albumin (3.9-5) g/dL Albumin/Globulin Ratio % - EKG Data -: EKG Interpreted by Nh EKG shows normal: sinus rhythm Rate: tachycardia - EKG Data 03/11/21 05:46 Sinus rhythm, tachycardia, 1 1 0 bpm. Normal axis, QTC prolonged, motion artif act, left ventricular hypertrophy. Abnormal EKG. Not a STEMI. - Radiology Data Radiology results: pending, report reviewed, image reviewed X-ray of the chest is negative for acute findings. Critical care attestation.: If time is entered above; I have spent that time in minutes in the direct care of this critically ill patient, excluding procedure time. ED Disposition Clinical Impression: ESRD (end stage renal disease) Diarrhea Qualifiers: Diarrhea type: unspecified type Qualified Code(s): R19.7 - Diarrhea, unspecified Disposition: DC- TO HOME OR SELFCARE Is pt being admited?: No Does the pt Need Aspirin: No Condition: Good Instructions: Dialysis, Chronic Diarrhea Additional Instructions: Please continue current outpatient medications. Patient may consider consuming stool bulking agents, such as fiber, vegetables, lean protein, which may be cons umed [id number]. Please follow-up for hemodialysis tomorrow. Please follow-up with a utility supervisor [employer] on Tuesday. Cultures were sent today, results will be available in the next 3 to 5 days. Please have your primary care doctor, utility supervisor [employer] and [employer] or cleaning attendant contact the medical records department to obtain culture results. Please return to the emergency room right away with new pain, worsened pain, migration of pain, projectile vomiting, change in mental status, confusion, inability to tolerate liquid feeds, new, worsened or different symptoms not present on initial emergency room evaluation. For the next 3 to 5 days, please consume at least 3 cups of water per day. Referrals: GLENNA PANDYA MD [Staff Physician] - 3-5 Days REGINA SOOD MD [Staff Physician] - 3-5 Days
[2021-03-11] MEDS ORDERED: SODIUM CHLORIDE 0.9% 1000 ML 1,000 ML IV ONE (04:40)
[2021-03-11] MEDS ORDERED: ACETAMINOPHEN 500 MG TAB PO ONE (04:40)
--- NOTE | 2021-03-11 04:53 | XRay Report ---
CHEST 1 VIEW 03/11/2021 3:42 AM INDICATION / CLINICAL INFORMATION: Fever. Dizziness. Diarrhea for 3 months. COMPARISON: None available. FINDINGS: SUPPORT DEVICES: None. HEART / MEDIASTINUM: The heart size and pulmonary vasculature are normal. Mild calcification in the a ortic arch without aneurysm. LUNGS / PLEURA: Benign-appearing calcification in the right midlung. No acute pulmonary or pleural ab normality. No pneumothorax. ADDITIONAL FINDINGS: No significant additional findings. IMPRESSION: No acute findings. Signer Name: Erick Centeno MD Signed: 03/11/2021 4:48 AM Workstation Name: [id number]
[2021-03-11] MEDS ORDERED: SODIUM CHLORIDE 0.9% 500 ML 500 ML IV ONE ×2 (05:10)
[2021-03-11 05:35] VITALS: BP 147/81
--- NOTE | 2021-03-12 10:46 | Electrocardiograph Report ---
[facility] Test Date: 2021-03-11 Test Time: 05:08:12 Pat Name: CHAU LAN Department: Room: Gender: M Grommet Worker: : 1940 Requested By: DAISY LYNN Order Number: [id number] Reading MD: Curly Eaton Measurements Intervals [place] Rate: 110 P: 70 MO: 160 QRS: 82 QRSD: 95 T: 53 QT: 351 QTc: 474 Interpretive Statements Sinus tachycardia No previous ECG available for comparison Electronically Signed On 03-12-2021 10:46:25 EDT by Curly Eaton
== END 2021-03-11 05:53 | disposition home or self-care (01) ==
LOC: ED 19:25
DX: I12.0 Hypertensive chronic kidney disease with stage 5 chronic kidney disease or end stage renal disease (principal); N18.6 End stage renal disease; R19.7 Diarrhea, unspecified; Z79.899 Other long term (current) drug therapy; Z98.890 Other specified postprocedural states
CPT/HCPCS: 36415; 71045; 80053; 82140; 85007; 85025; 87040; 93005; 99284; J7030